=== PATIENT | male | born 1970 | race Two or more races ===

== ENCOUNTER 2024-09-26 14:21 | Inpatient (IN) | payer OTHER ==
[~2024-09-26] VITALS: Ht 162.6 cm; Wt 80.7 kg
[2024-09-26] MEDS ORDERED: DIOVAN40 MG (15:07)
[2024-09-26] MEDS ORDERED: AMLODIPINE-OLM1 EAC2 (15:07)
[2024-09-26] MEDS ORDERED: ATORVASTATIN CA10 MG (15:07)
[2024-09-26] MEDS ORDERED: FARXIGA5 MG (15:07)
[2024-09-26] MEDS ORDERED: METFORMIN HCL500 MG (15:07)
--- NOTE | 2024-09-26 15:09 | NUR ---
PTE ALERTA Y ORIENTADO X3, REFIERE BRANT DOLOR FLANCO IZQ. REFIERE HOY SE REALIZO UN CT Y UN SONOGRAMA Y SALIO CON AGGIE EN LA VESICULA. SE DORYS SV Y SE UBICA
[2024-09-26] MEDS ORDERED: RINGERS SOLUTION,LACTATED 1,000 ML IV STA (15:51)
[2024-09-26] MEDS ORDERED: PROMETHAZINE HCL 50 MG/ML AMPUL IM STA (15:52)
[2024-09-26] MEDS ORDERED: MEPERIDINE HCL/PF 50 MG/ML VIAL IM STA (15:52)
--- NOTE | 2024-09-26 16:03 | NUR ---
SE EDUCA A PTE SOBRE TX MEDICO KITA REFIERE ENTENDER, SE DORYS MUESTRAS DE LABORATORIO UTILIZANDO MEDIDAS ASEPTICAS. SE COLOCA H/L TERRY DE EDEMA Y SE COLOCA IV FLUIDS.
[2024-09-26 16:35] LABS: HEMATOCRIT 39.6 % (39.0-48.0); HEMOGLOBIN 14.1 g/dL (13-16.00); MEAN CELL VOLUME 87.4 fL (80.0-100.00); MEAN CORPUSCULAR HEMOGLOBIN 31.2 pg (27.00-32.0); MEAN CORPUSCULAR HGB CONC 35.7 g/dl (32.0-36.0); PLATELET COUNT 428 K/uL (150-450); RED BLOOD COUNT 4.53 M/uL (4.00-6.00); RED CELL DISTRIBUTION WIDTH 12.4 % (11.5-14.5)
[2024-09-26 16:49] LABS: INR 1.06; PARTIAL THROMBOPLASTIN TIME 28.8 SECONDS (22.0-34.0); PROTHROMBIN TIME 11.5 SECONDS (9.0-11.5)
[2024-09-26 16:53] LABS: AMYLASE 51 U/L (25-115); LIPASE 32 U/L (13-75)
[2024-09-26 16:59] LABS: ALBUMIN 3.5 gm/dL (3.4-5.0); BILIRUBIN TOTAL 1.6 mg/dL (0.3-1.2); BILIRUBIN,CONJUGATED 0.35 mg/dL (0.0-0.2); BILIRUBIN,UNCONJUGATED 1.25 mg/dL (0.0-0.6); CALCIUM 9.2 mg/dL (8.5-10.1); CREATININE SERUM 0.73 mg/dL (0.70-1.30); GFR 113.27; POTASSIUM 3.37 mEq/L (3.5-5.1); TOTAL PROTEIN 7.3 gm/dL (6.4-8.2)
[2024-09-26] MEDS ORDERED: PIPERACILLIN/TAZOBACTAM SODIUM 3.375 GM VIAL IV ONE (17:15)
[2024-09-26 20:17] VITALS: BP 124/62
[2024-09-26] MEDS ORDERED: 0.9 % SODIUM CHLORIDE 1,000 ML IV SCH (21:00)
[2024-09-26] MEDS ORDERED: MEPERIDINE HCL/PF 25 MG/ML VIAL IM PRN (21:15)
[2024-09-26] MEDS ORDERED: DEXTROSE 50 % IN WATER 0.5 G/ML DISP.SYRIN IV PRN (21:15)
[2024-09-26] MEDS ORDERED: INSULIN LISPRO 1,000 UNIT/10 ML UNITS SUBCUTANEO PRN (21:15)
[2024-09-26] MEDS ORDERED: HYOSCYAMINE SULFATE 0.125 MG TAB.SUBL PO ONE (21:15)
[2024-09-26] MEDS ORDERED: POTASSIUM CHLORIDE 20MEQ/100ML H2O PB IV ONE (21:15)
[2024-09-26] MEDS ORDERED: ACETAMINOPHEN 500 MG GEL..CAP PO PRN (21:15)
[2024-09-26 23:00] VITALS: BP 98/66; O2SAT 98
[2024-09-27] MEDS ORDERED: PIPERACILLIN/TAZOBACTAM SODIUM 3.375 GM in DEXTROSE 5 % IN WATER 100 ML IV SCH
[2024-09-27 03:23] LABS: PH,URINE 5.5 (5.0-8.0); URINE APPEARANCE Clear; URINE BILIRRUBIN Negative (NEGATIVE); URINE BLOOD Negative; URINE COLOR Yellow; URINE KETONE Trace (NEGATIVE); URINE LEUKOCYTE Negative; URINE NITRATE Negative; URINE PROTEIN 30 (NEGATIVE)
[2024-09-27 03:27] LABS: URINE BACTERIA 7.5 uL (0.0-1933); URINE EPITHELIAL CELLS 9.8 uL (0.0-38.8); URINE RBC 2.9 uL (0.0-20.8); URINE WBC 6.4 uL (0.0-23.2)
[2024-09-27 04:00] VITALS: BP 97/64
[2024-09-27 05:41] LABS: URINE GLUCOSE 100 MG/DL (NEGATIVE)
[2024-09-27 07:14] LABS: MAGNESIUM 2.1 mg/dL (1.8-2.4); PHOSPHOROUS 2.9 mg/dL (2.5-4.9)
[2024-09-27] MEDS ORDERED: POTASSIUM CHLORIDE/D5-0.9%NACL 20 MEQ/1,000 ML PIGGYBAG IV SCH (09:00)
[2024-09-27] MEDS ORDERED: MULTIVIT INFUSN,ADULT 4,VIT K 10 ML VIAL IV SCH (09:00)
[2024-09-27] MEDS ORDERED: ATORVASTATIN CALCIUM 10 MG TABLET PO SCH (09:00)
[2024-09-27] MEDS ORDERED: PATIENTS OWN MEDICATION (MEDICAMENTO EN PISO) PO SCH (09:00)
[2024-09-27] MEDS ORDERED: FAMOTIDINE/PF 20 MG in 0.9 % SODIUM CHLORIDE 8 ML IV PUSH SCH (09:00)
[2024-09-27] MEDS ORDERED: ENOXAPARIN SODIUM 40 MG/0.4 ML SYRINGE SUBCUTANEO SCH (09:00)
[2024-09-27] MEDS ORDERED: AMLODIPINE BESYLATE 5 MG TABLET PO SCH (09:00)
[2024-09-27 09:12] VITALS: BP 99/65; O2SAT 97
[2024-09-27 19:49] VITALS: BP 121/76; O2SAT 99
[2024-09-28 02:09] VITALS: BP 100/65; O2SAT 98
[2024-09-28] MEDS ORDERED: 0.9 % SODIUM CHLORIDE 1,000 ML IV SCH (07:45)
[2024-09-28 09:53] VITALS: BP 120/82; O2SAT 94
[2024-09-28 11:34] LABS: HEMATOCRIT 38.8 % (39.0-48.0); HEMOGLOBIN 13.8 g/dL (13-16.00); MEAN CELL VOLUME 89.6 fL (80.0-100.00); MEAN CORPUSCULAR HEMOGLOBIN 31.8 pg (27.00-32.0); MEAN CORPUSCULAR HGB CONC 35.5 g/dl (32.0-36.0); PLATELET COUNT 405 K/uL (150-450); RED BLOOD COUNT 4.33 M/uL (4.00-6.00); RED CELL DISTRIBUTION WIDTH 12.2 % (11.5-14.5)
[2024-09-28 12:23] LABS: BILIRUBIN TOTAL 1.48 mg/dL (0.3-1.2); CALCIUM 8.7 mg/dL (8.5-10.1); CREATININE SERUM 1.08 mg/dL (0.70-1.30); GFR 72.08; GLOBULINA 3.2 G/DL (2.4-3.5); POTASSIUM 4.05 mEq/L (3.5-5.1); TOTAL PROTEIN 6.2 gm/dL (6.4-8.2)
[2024-09-28 13:00] LABS: ob NEGATIVE (NEGATIVE)
[2024-09-28 17:36] VITALS: BP 121/83; O2SAT 94
[2024-09-29 02:19] VITALS: BP 108/70; O2SAT 98
[2024-09-29 08:34] VITALS: BP 113/71; O2SAT 96
[2024-09-29 17:58] VITALS: BP 120/80; O2SAT 97
[2024-09-30 01:28] VITALS: BP 105/57; O2SAT 96
[2024-09-30 11:13] VITALS: BP 132/81; O2SAT 96
[2024-09-30 17:29] VITALS: BP 140/85; O2SAT 97
[2024-10-01 01:44] VITALS: BP 100/65; O2SAT 94
[2024-10-01 08:25] VITALS: BP 120/81; O2SAT 96
== END 2024-10-01 14:09 | disposition home or self-care (01) | DRG 872 ==
LOC: ER 14:23 → MEDJ 21:12
PROVIDERS: General Practice; Internal Medicine; ADMIT Internal Medicine; ATTEND Internal Medicine
PROC: BW21ZZZ Computerized Tomography (CT Scan) of Abdomen and Pelvis (ICD-10-PCS; principal; 2024-09-26)
PROC: BT4JZZZ Ultrasonography of Kidneys and Bladder (ICD-10-PCS; 2024-09-27)
DX: A41.9 Sepsis, unspecified organism (principal); A09 Infectious gastroenteritis and colitis, unspecified; K57.32 Diverticulitis of large intestine without perforation or abscess without bleeding; R65.10 Systemic inflammatory response syndrome (SIRS) of non-infectious origin without acute organ dysfunction; E11.9 Type 2 diabetes mellitus without complications; Z79.4 Long term (current) use of insulin

== ENCOUNTER 2024-10-15 05:00 | Day surgery (SDC) | payer OTHER ==
[2024-10-11 10:18] VITALS: BP 114/73
[2024-10-11 10:48] LABS: URINE APPEARANCE Clear; URINE BILIRRUBIN Negative (NEGATIVE); URINE BLOOD Negative; URINE COLOR Yellow; URINE EPITHELIAL CELLS 1.6 uL (0.0-38.8); URINE KETONE Trace (NEGATIVE); URINE LEUKOCYTE Negative; URINE NITRATE Negative; URINE PROTEIN Negative (NEGATIVE); URINE UROBILINOGEN 0.2 E.U./dl; URINE WBC 3.6 uL (0.0-23.2)
[2024-10-11 10:50] LABS: URINE BACTERIA 2.5 uL (0.0-1933); URINE CAST 0.15 uL (0.0-1.40); URINE GLUCOSE 250 MG/DL (NEGATIVE); URINE RBC 1.3 uL (0.0-20.8)
[2024-10-11 10:53] LABS: HEMATOCRIT 37.7 % (39.0-48.0); HEMOGLOBIN 13.4 g/dL (13-16.00); MEAN CELL VOLUME 90.4 fL (80.0-100.00); MEAN CORPUSCULAR HEMOGLOBIN 32.1 pg (27.00-32.0); MEAN CORPUSCULAR HGB CONC 35.5 g/dl (32.0-36.0); PLATELET COUNT 409 K/uL (150-450); RED BLOOD COUNT 4.17 M/uL (4.00-6.00); RED CELL DISTRIBUTION WIDTH 12.9 % (11.5-14.5)
[2024-10-11 11:15] LABS: INR 1.05; PARTIAL THROMBOPLASTIN TIME 30.4 SECONDS (22.0-34.0); PROTHROMBIN TIME 11.4 SECONDS (9.0-11.5)
[2024-10-11 11:57] LABS: BILIRUBIN TOTAL 1.34 mg/dL (0.3-1.2); CALCIUM 10.4 mg/dL (8.5-10.1); CREATININE SERUM 0.85 mg/dL (0.70-1.30); GFR 94.65; GLOBULINA 3.4 G/DL (2.4-3.5); POTASSIUM 4.33 mEq/L (3.5-5.1); TOTAL PROTEIN 7.4 gm/dL (6.4-8.2)
[~2024-10-15] VITALS: Ht 162.6 cm; Wt 77.1 kg
[~2024-10-15 05:00] MED LIST: AMLODIPINE-OLM1 EAC2; ATORVASTATIN CA10 MG; DIOVAN40 MG; FARXIGA5 MG; METFORMIN HCL500 MG
[2024-10-15] MEDS ORDERED: BUPIVACAINE HCL 30 ML VIAL IJ ONE (08:30)
[2024-10-15] MEDS ORDERED: CEFAZOLIN SODIUM 1,000 MG in 0.9 % SODIUM CHLORIDE 50 ML IV ONE (08:30)
[2024-10-15] MEDS ORDERED: SUGAMMADEX SODIUM 200 MG/2 ML VIAL IV ONE (09:00)
[2024-10-15] MEDS ORDERED: MORPHINE SULFATE 4 MG/ML VIAL IV ONE ×2 (09:30→10:00)
== END 2024-10-15 12:35 | disposition home or self-care (01) ==
LOC: CIR.AMB 05:00
PROVIDERS: ATTEND Surgery
DX: K80.10 Calculus of gallbladder with chronic cholecystitis without obstruction (principal); K42.0 Umbilical hernia with obstruction, without gangrene